=== PATIENT | male | born 1970 | race Caucasian/White ===

== ENCOUNTER 2019-01-30 19:06 | Emergency (ER) | payer BC, OTHER ==
[2019-01-30 19:23] VITALS: BP 99/71
--- NOTE | 2019-01-30 19:37 | ED ---
GI/ HPI - HPI Summary HPI Summary: pt presents for evaluation of his back pain, nausea, chills. he states that he has not had much of an appetite today. he has not had much to drink either. he has a hx of kidney stones. 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 Onset/Duration: Started Days Ago - 1 Severity: Moderate Current Severity: Mild Pain Intensity: 4 - Allergy/Home Medications Allergies/Adverse Reactions: Allergies Allergy/AdvReac Type Severity Reaction Status Date / Time No Known Allergies Allergy Verified 01/30/19 19:23 Home Medications: Home Medications Ezetimibe TAB* [Zetia TAB*] 10 mg PO DAILY 01/30/19 [History Confirmed 01/30/19] Lisinopril TAB* [Prinivil TAB*] 5 mg PO DAILY 01/30/19 [History Confirmed ] PMH/Surg Hx/FS Hx/Imm Hx Previously Healthy: Yes Cardiovascular History: Reports: Hx Hypertension - Surgical History Surgery Procedure, Year, and Place: lithrotrpsy Infectious Disease History: No Infectious Disease History: Denies: Traveled Outside the [place] in Last 30 Days - Social History Alcohol Use: Occasionally Substance Use Type: Reports: None Smoking Status (MU): Never Smoked Tobacco Review of Systems Positive: Chills, Fatigue Eyes: Negative ENT: Negative Cardiovascular: Negative Respiratory: Negative Positive: Abdominal Pain, Nausea Positive: flank pain Musculoskeletal: Negative Skin: Negative Neurological: Negative Psychological: Normal All Other Systems Reviewed And Are Negative: No Physical Exam Triage Information Reviewed: Yes Vital Signs On Initial Exam: Initial Vitals Temp Pulse Resp BP Pulse Ox 99.9 F 86 16 99/71 95 01/30/19 19:19 01/30/19 19:19 01/30/19 19:19 01/30/19 19:19 01/30/19 19:19 Vital Signs Reviewed: Yes Appearance: Positive: Well-Appearing, No Pain Distress, Well-Nourished Skin: Positive: Warm, Dry Eyes: Positive: Normal, EOMI, DEREK ENT: Positive: Hearing grossly normal Neck: Positive: Supple Respiratory/Lung Sounds: Positive: Clear to Auscultation, Breath Sounds Present , Decreased Breath Sounds Cardiovascular: Positive: Normal, RRR Abdomen Description: Positive: Nontender, Soft Bowel Sounds: Positive: Present Musculoskeletal: Positive: Normal, Strength/ROM Intact Neurological: Positive: Normal Psychiatric: Positive: Normal AVPU Assessment: Alert Diagnostics - Vital Signs Vital Signs Temp Pulse Resp BP Pulse Ox 01/30/19 19:19 99.9 F 86 16 99/71 95 - Laboratory Lab Statement: Any lab studies that have been ordered have been reviewed, and results considered in the medical decision making process. GIGU Course/Dx - Course Course Of Treatment: pt has a hx of kidney stones. he has been having chills, back pain, nausea and he is hypotensive in the UC. he has also had decrease po intake. he should be further evaluated in an ed. he may have a kidney stone or pyelonephritis or an infected stone. he is clearly dehydrated. - Diagnoses Provider Diagnoses: Kidney stone Discharge - Sign-Out/Discharge Documenting (check all that apply): Patient Departure All imaging exams completed and their final reports reviewed: No Studies - Discharge Plan Condition: Stable Disposition: TRANS [facility] Patient Education Materials: Kidney Stones (ED) Referrals: Feliciano Shaikh MD [Primary Care Provider] - Additional Instructions: Please go to [facility] immediately after discharge from the Urgent Care for further evaluation. - Billing Disposition and Condition Condition: STABLE Disposition: Trans [facility] Care Fac
== END 2019-01-30 19:42 | disposition short-term general hospital (02) ==
LOC: UCCORT 19:06
DX: Z87.442 Personal history of urinary calculi (principal); N20.0 Calculus of kidney; I10 Essential (primary) hypertension
CPT/HCPCS: 99212; G0463